=== PATIENT | male | born 1965 | race Two or more races ===

== ENCOUNTER 2016-10-27 09:06 | Emergency (ER) | payer OTHER ==
--- NOTE | 2016-10-27 09:48 | RAD ---
HAND-LEFT 3 VIEWS COMPARISON: None. HISTORY: Fall from a letter 3 weeks ago. Left thumb pain for 2 weeks. IMPRESSION: Views: Left hand PA, oblique, lateral. Bones: Normal Joints: Normal. Soft tissues: Normal. IMPRESSION: Normal 3 views of the left hand.
== END 2016-10-27 10:30 | disposition home or self-care (01) ==
LOC: ED 09:06
DX: M79.645 Pain in left finger(s) (principal); W11.XXXA Fall on and from ladder, initial encounter; Y92.69 Other specified industrial and construction area as the place of occurrence of the external cause; Y99.0 Civilian activity done for income or pay